=== PATIENT | female | born 1980 | race Caucasian/White ===

== ENCOUNTER → 2016-09-15 | Outpatient (CLI) | payer BC ==
[~2016-09-15] MED LIST: IOHEXOL 300 MG/ML 50 ML BTL (for RAD DIAG) I-UTERINE ONE
--- NOTE | 2016-09-15 08:37 | RADRPT ---
EXAM DATE/TIME: 09/15/2016 07:53 [place] COMPARISON: No previous studies available for comparison. INDICATIONS : Ovarian dysfunction 0.3 minutes 5 CONTRAST: 15 cc Omnipaque 300 (iohexol) DEVICE: 5-F Catheter MEDICAL HISTORY : None. SURGICAL HISTORY : None. ENCOUNTER: Initial ACUITY: 1 day PAIN SCORE: 0/10 LOCATION: Bilateral pelvis FINDINGS: Preliminary film is normal. Technical aspect of the cervical cannulation and injection of contrast was performed by the referring physician. Examination is performed under fluoroscopic control. The endometrial cavity has a normal shape and appearance. No filling defects are appreciated. There is rapid filling of the fallopian tubes and passage into the pelvis bilaterally. CONCLUSION: Normal hysterosalpingogram. Fallopian tubes are patent bilaterally. Clifford Nguyen MD on September 15, 2016 at 8:34 Board Certified Radiologist. This report was verified electronically.
== END ==
LOC: HRAD 07:31
PROVIDERS: ATTEND Obstetrics & Gynecology
DX: E28.9 Ovarian dysfunction, unspecified (principal)
CPT/HCPCS: 58340; 74740; Q9967

== ENCOUNTER → 2017-02-11 | Outpatient (CLI) | payer BC | LOC: HPND 12:08 | PROVIDERS: ATTEND Obstetrics & Gynecology | DX: O09.521 Supervision of elderly multigravida, first trimester (principal); Z90.89 Acquired absence of other organs; Z3A.00 Weeks of gestation of pregnancy not specified | CPT/HCPCS: 76813 ==

== ENCOUNTER 2017-06-15 13:05 | Emergency (ER) | payer BC ==
--- NOTE | 2017-06-15 14:22 | PD ---
HPI Chief Complaint Decreased movement Date Seen: Jun 15, 2017 Time Seen: 14:00 Travel History International Travel<30 Days: No Contact w/Intl Traveler<30Days: No Known Affected Area: No History of Present Illness HPI Patient is 37-year-old at [address] king for care presents complaining of decreased movement last 48 hours, denies pain bleeding or leakage of fluid. Here on OB ED that he has a reactive strip for 30 weeks this is hard to find heart tones the baby appears to be in a transverse lie back up in the upper part of the uterus and were not looking with the right spot heart tones which once we have discerned the baby's position we are able to get heart tones were very easily and could see that was reactive. However due to patient anxiety and Dr. king would want the patient to have a biophysical profile so that we'll proceed with that procedure Weeks Gestation: 30 Para: 0 : 1 History Social History Alcohol Use: No Tobacco Use: No Substance Abuse: No Review of Systems General / Constitutional: No: Fever, Weight Gain, Chills, Other Eyes: No: Diploplia, Blurred Vision, Visual changes, Pain, Photophobia HENT: No: Headaches, Vertigo, Lightheadedness Cardiovascular: No: Irregular Rhythm, Chest Pain or Discomfort, Palpitations, Tachycardia, Syncope, Varicosities, Edema, Cyanosis Respiratory: No: Cough, Short of Breath, Other Gastrointestinal: No: Nausea, Vomiting, Diarrhea Genitourinary: No: Decreased Urinary Output, Oliguria Musculoskeletal: No: Limited ROM, Weakness, Cramping, Edema, Pain Skin: No Rash, No Itching, No Dryness, No Lumps, No Change in Pigmentation, No Change in Nails, No Alopecia, No Lesions Neurologic: No: Weakness, Dizziness, Syncope, Focal Abnormalities, Coordination Problem, Headache, Slurred Speech, Seizures Psychiatric: No: Depression, Suicidal Ideations, Homicidal Ideation Endocrine: No: Heat Intolerance, Cold Intolerance, Polydipsia, Polyuria, Other Physical Exam Narrative GENERAL: Well-nourished, well-developed patient. SKIN: Warm and dry. HEAD: Normocephalic and atraumatic. EYES: No scleral icterus. No injection or drainage. ENT: No nasal drainage noted. Mucous membranes pink. Airway patent. NECK: Supple, trachea midline. No JVD. CARDIOVASCULAR: Regular rate and rhythm without murmurs, gallops, or rubs. RESPIRATORY: Breath sounds equal bilaterally. No accessory muscle use. BREASTS: Bilateral exam showed no masses , no retractions, no nipple discharge. ABDOMEN/GI: Abdomen soft, non-tender, bowel sounds present, no rebound, no guarding Gravid to [-30] weeks size Fundal Height: [-30] GENITOURINARY: Membranes: [intact ] Uterine Contractions: [none] FHT's: Category: [1-] Baseline: [-133] Reactive: [-yes for 30 wks] Variability: [-mod] Decels: [none-] EXTREMITIES: No cyanosis or edema. BACK: Nontender without obvious deformity. No CVA tenderness. NEUROLOGICAL: Awake and alert. Motor and sensory grossly within normal limits. Five out of 5 muscle strength in all muscle groups. Normal speech. Data Data Orders Orders Us Ob Bpp Wo Nst W Repeat (06/15/17 13:31) Labs BPP -8 of 8 MDM Interpretation(s) Patient is 37-year-old white female at 30 weeks [address] King's who presents complaining of decreased movement last 48 hours. Has no other complaints or problems. She tried to eat foods and sweet Drinks to get the baby move it would not move she call the office next told her to come here on OB ED we did have a reactive strip 30 weeks and BPP is 8 of 8 Plan Plan to discharge patient home to kick count observation continued to have a normal diet return for any further problems decreased movement episodes Diagnosis Diagnosis: Primary Impression: Decreased movement affecting management of in third trimester Disposition: 01 DISCHARGE HOME Condition: Stable Patient Instructions: General Instructions, Movement (ED) Departure Forms: Tests/Procedures Quinton Hobson II, MD Jun 15, 2017 14:22
== END 2017-06-15 14:48 | disposition home or self-care (01) ==
LOC: HOBED 13:05
DX: O36.8130 Decreased fetal movements, third trimester, not applicable or unspecified (principal); Z3A.30 30 weeks gestation of pregnancy
CPT/HCPCS: 76816; 76819